=== PATIENT | male | born 1985 | race Caucasian/White ===

== ENCOUNTER 2021-12-24 10:07 | Emergency (ER) | payer MEDICARE, MEDICAID, SELFPAY ==
[2021-12-24 10:32] VITALS: PULSE 86; RESP 16; O2SAT 95; BMI 29.6
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
--- NOTE | 2021-12-28 14:08 | DCPLANNER ---
supplier quality engineering manager had message to speak with patient about getting a follow up appointment for patient with primary care physician. supplier quality engineering manager was unable to speak with patient at this time, unable to leave a voicemail for patient.
== END 2021-12-24 11:19 | disposition home or self-care (01) ==
PROVIDERS: Emergency Provider Physician Assistant; PCP Family Medicine
DX: M54.50 Low back pain, unspecified (principal); G89.29 Other chronic pain; V89.2XXS Person injured in unspecified motor-vehicle accident, traffic, sequela
CPT/HCPCS: 99281